=== PATIENT | male | born 1980 ===

== ENCOUNTER 2023-08-29 11:10 | Inpatient (IN) | payer BC ==
[2023-08-29 11:38] LABS: BASOPHILS PERCENT AUTO 0.5 % (0.0-1.0); EOSINOPHILS PERCENT AUTO 0.2 % (1.0-3.0); HEMATOCRIT 47.6 % (40.0-54.0); HEMOGLOBIN 16.4 g/dL (14.0-18.0); LYMPHOCYTES PERCENT AUTO 13.9 % (20.5-50.1); MEAN CORPUSCULAR HEMOGLOBIN 31.5 pg (27.0-34.0); MEAN CORPUSCULAR HGB CONC 34.5 g/dL (33.0-35.0); MEAN CORPUSCULAR VOLUME 91.4 fL (80-100); MONOCYTES PERCENT AUTO 8.5 % (2-8); NEUTROPHILS PERCENT AUTO 76.9 % (42.2-75.2); PLATELET COUNT,PLT 127 10^3/uL (150-450); RED BLOOD CELL COUNT 5.21 10^6/uL (4.6-6.2); WHITE BLOOD CELL COUNT,WBC 6.3 10^3/uL (5.0-10.0)
[2023-08-29] MEDS: LORazepam 2 MG/ML SDV IVPUSH ONE ×3 (11:56→14:38)
[2023-08-29] MEDS: Sodium Chloride 0.9% 2,000 ML IV ONE (11:57)
[2023-08-29] MEDS: Sodium Chloride 0.9% 10 ML Syringe FLUSH PRN (11:57)
[2023-08-29 11:59] LABS: APPEARANCE,URINE CLEAR (CLEAR); BILIRUBIN,URINE NEGATIVE (NEGATIVE); COLOR,URINE YELLOW (YELLOW); GLUCOSE,URINE NEGATIVE (NEGATIVE); KETONES,URINE 15 (NEGATIVE); LEUKOCYTE ESTERASE,URINE NEGATIVE (NEGATIVE); NITRITE,URINE NEGATIVE (NEGATIVE); OCCULT BLOOD,URINE NEGATIVE (NEGATIVE); PH,URINE 8.5 (5.0-9.0); PROTEIN,URINE 100 (NEGATIVE)
[2023-08-29 11:59] LABS: A/G RATIO 1.1; ALBUMIN 4.6 g/dL (3.4-5.0); ANION GAP 11.5 mEq/L (7-13); BILIRUBIN TOTAL 1.9 mg/dL (0.2-1.0); BUN/CREATININE RATIO 5.3 (No establ ref range); CALCIUM 10.1 mg/dL (8.5-10.1); CREATININE 0.95 mg/dL (0.70-1.30); EST CRCL DRUG DOSING (CG) 113.31 mL/min; MAGNESIUM 1.3 mg/dL (1.8-2.4); POTASSIUM,K 3.5 mmol/L (3.5-5.1); PROTEIN TOTAL,TP 8.6 g/dL (6.4-8.2); TSH ULTRASENSITIVE 0.93 uIU/mL (0.36-3.74)
[2023-08-29 12:01] LABS: AMPHETAMINES,URINE NEGATIVE (NEGATIVE); BARBITURATES,URINE NEGATIVE (NEGATIVE); BENZODIAZEPINE,URINE NEGATIVE (NEGATIVE); MDMA (ECSTASY), URINE NEGATIVE (NEGATIVE); METHADONE,URINE NEGATIVE (NEGATIVE); METHAMPHETAMINES,URINE NEGATIVE (NEGATIVE); OPIATES,URINE NEGATIVE (NEGATIVE); OXYCODONE,URINE NEGATIVE (NEGATIVE); PHENCYCLIDINE,URINE NEGATIVE (NEGATIVE); TCA,URINE NEGATIVE (NEGATIVE)
[2023-08-29 12:11] LABS: BACTERIA,URINE RARE /HPF (0-FEW/HPF); EPITHELIAL CELLS,URINE NOT SEEN /HPF (NOT SEEN); WBC,URINE 0-5 /HPF (0-5/HPF)
[2023-08-29] MEDS: chlordiazePOXIDE 25 MG Cap PO ONE ×2 (12:57→14:38)
[2023-08-29] MEDS: MVI, Adult with Vitamin K 10 ML, Folic Acid 1 MG, Thiamine 100 MG in Lactated Ringers 1... IV ONE (12:58)
[2023-08-29] MEDS ORDERED: Iopamidol 755 Mg/ML 100 ML Bottle IVPUSH ONE (13:25)
[2023-08-29] MEDS: Iopamidol 612 MG/ML 100 ML Bottle IVPUSH ONE (13:38)
[2023-08-29] MEDS: Magnesium Sulfate/Water 2 GM in Premix Bag 1 BAG IV ONE (13:43)
[2023-08-29 13:46] LABS: LACTIC ACID 1.1 mmol/L (0.4-2.0)
[2023-08-29] MEDS ORDERED: Flumazenil 0.1 MG/ML 5 ML MDV IVPUSH PRN (14:11)
[2023-08-29] MEDS ORDERED: hydrALAZINE 20 MG/ML SDV IVPUSH PRN (15:53)
[2023-08-29] MEDS ORDERED: Albuterol/Ipratropium 3.0-0.5 MG/3 ML Neb Soln NEB PRN (15:57)
[2023-08-29] MEDS: Lisinopril 10 MG Tab PO SCH (16:47)
[2023-08-29] MEDS: Sodium Chloride 0.9% 1,000 ML IV SCH (16:51)
[2023-08-29] MEDS: Nicotine 21 MG/24 Hr Patch TRDERM SCH (17:28)
[2023-08-29] MEDS: Ondansetron 4 MG/2 ML SDV IVPUSH PRN (20:49)
[2023-08-29] MEDS: LORazepam 2 MG/ML SDV IVPUSH PRN (20:53)
[2023-08-30] MEDS: Omeprazole 20 MG Cap.CR PO SCH (08:01)
[2023-08-30] MEDS: Acetaminophen 325 MG Tab PO PRN (08:05)
[2023-08-30 08:47] LABS: ANION GAP 9.9 mEq/L (7-13); CREATININE 0.84 mg/dL (0.70-1.30); EST CRCL DRUG DOSING (CG) 128.15 mL/min; MAGNESIUM 1.9 mg/dL (1.8-2.4); POTASSIUM,K 3.9 mmol/L (3.5-5.1)
[2023-08-30 11:15] LABS: ALBUMIN 3.5 g/dL (3.4-5.0); ANION GAP 12.9 mEq/L (7-13); BUN/CREATININE RATIO 6.7 (No establ ref range); CREATININE 0.89 mg/dL (0.70-1.30); EST CRCL DRUG DOSING (CG) 120.95 mL/min; POTASSIUM,K 3.9 mmol/L (3.5-5.1)
== END 2023-08-30 12:00 | disposition home or self-care (01) | DRG 775 ==
LOC: DL.ED 11:10 → DL.MS 15:22 → DL.ED 15:30
PROVIDERS: ADMIT Student in an Organized Health Care Education/Training Program; ATTEND Student in an Organized Health Care Education/Training Program
DX: F10.939 Alcohol use, unspecified with withdrawal, unspecified (principal); I16.0 Hypertensive urgency; J45.909 Unspecified asthma, uncomplicated; E83.42 Hypomagnesemia; R74.8 Abnormal levels of other serum enzymes; K21.9 Gastro-esophageal reflux disease without esophagitis; R25.1 Tremor, unspecified; D69.6 Thrombocytopenia, unspecified; I10 Essential (primary) hypertension; R80.9 Proteinuria, unspecified; Z72.0 Tobacco use; Z88.8 Allergy status to other drugs, medicaments and biological substances
CPT/HCPCS: 36415; 71046; 74177; 80048; 80053; 80305-QW; 81001; 82550; 83605; 83690; 83735; 84145; 84443; 84484; 85025; 85379; 93005; 96361; 96365; 96366; 96367; 96375; 96376; 99285-25; A9270-GY; J2060; J2405; J3411; J3475; J3490; J7030; J7120; Q9967